=== PATIENT | female | born 1965 | race Caucasian/White ===

== ENCOUNTER → 2018-01-19 | Outpatient (CLI) | payer OTHER | LOC: RAD 14:46 | DX: Z12.31 Encounter for screening mammogram for malignant neoplasm of breast (principal) ==

== ENCOUNTER → 2019-02-03 | Outpatient (CLI) | payer OTHER | LOC: RAD 13:33 | DX: Z12.31 Encounter for screening mammogram for malignant neoplasm of breast (principal) ==

== ENCOUNTER → 2019-05-24 | Outpatient (CLI) | payer OTHER ==
[~2019-05-24] VITALS: Ht 157.5 cm; Wt 77.6 kg
[~2019-05-24] MED LIST: CYMBALTA60 MG PO; DIOVAN 80 MG TA80 M1 PO; FENOFIBRATE200 MG PO; HYDROCODON-ACE1 EAC7 PO; JARDIANCE10 MG PO; LEVEMIR SUBQ; METFORMIN HCL1000 MG PO; NOVOLOG100 UNIT/1 SUBQ; TRULICITY1.5 MG/0.5 SUBQ
--- NOTE | ~2019-05-24 | HPC ---
[facility] [place] [place] [address] PAIN MANAGEMENT CONSULTATION Name: BONILLAJOSE LUIS A Room #: REG SINA Martinez#: [id number] Admission: 05/24/19 Attend Phys: Daksha Stoner MD Discharge: Date of : 65 Report #: [id number] THIS REPORT FOR: //name// CC: Itz Stoner DATE OF SERVICE: 05/31/2019 CHIEF COMPLAINT: History of spinal stenosis and back pain. HISTORY OF PRESENT ILLNESS: The patient is a 54-year-old female who has been referred to the pain clinic for evaluation of back and leg pain. The patient states that she has a history of spinal stenosis. Has pain in the lower portion of her back that has been radiating down into her spine and into her neck as well as across the lower portion of her back. Pain is problematic in the right buttocks area. She also notes some pain and discomfort that radiates into her thigh to the level of the knee. Occasionally, has some discomfort on the left side as well. Notes that there is some tightness, which radiates down into the heel of her legs on the back side, right side more so than the left. Her MRI showed mild spinal stenosis at L3-L4. Also, moderate narrowing at L5-S1 in the area of the left L5 nerve root. The patient speaks Niuean. An full time staff interpreter was used to help facilitate our interaction. ALLERGIES: No known drug allergies. CURRENT MEDICATIONS: Jardiance 10 mg, tramadol 50 mg q.6 hours p.r.n., hydrocodone 5/325 q.6 hours p.r.n., NovoLog 7 units with meals, Cymbalta 60 mg b.i.d., valsartan 80 mg, Medrol Dosepak 01/19/2019, metformin 1000 mg b.i.d., Lyrica capsules 50 mg b.i.d., Trulicity 1.5 mg, Levemir 100 units as directed, ibuprofen 800 mg b.i.d., fenofibrate 200 mg. PAST MEDICAL HISTORY: Spinal stenosis, type 2 diabetes, hypertension, polyneuropathy, stage 3 chronic kidney disease, gallbladder disease. PAST SURGICAL HISTORY: Cholecystectomy in 2013, kidney drainage in 2013. SOCIAL HISTORY: Unemployed, has not worked for the last 6 years. REVIEW OF SYSTEMS: Recent weight change, wears glasses, shortness of breath with walking, dizziness, recurrent headaches, numbness and tingling sensation, diabetes, anemia. LABORATORY DATA: MRI of the lumbar spine dated 04/05/2019: 1. L2-L3 disk height disk bulge and prominent endplate degeneration. There is a disk cyst projecting superiorly on the right. There [place] [address] PAIN MANAGEMENT CONSULTATION Name: JOSE LUIS BONILLA Room #: REG CL Cecilio.#: [id number] Admission: 05/24/19 Attend Phys: Daksha Stoner MD Discharge: Date of : 65 Report #: [id number] spinal canal and mild right foraminal narrowing. 2. L3-L4 disk bulge with mild facet joint arthropathy with mild narrowing of the spinal canal. 3. L5 mild facet arthropathy, otherwise unremarkable. 4. L5-S1 left foraminal disk protrusion results in moderate narrowing of the left foramen. Impression, mild spinal stenosis at L3-L4, moderate left foraminal narrowing at L5-S1 that could affect the L5 nerve root. PAIN CLINIC ASSESSMENT AND PQRS: 1. Osteoarthritis, not being treated for osteoarthritis. 2. History of rheumatoid arthritis, not being treated for rheumatoid arthritis. 3. Height 5 feet 2 inches, weight 171 pounds, BMI is 31.3. 4. Vital signs: Blood pressure 139/82, pulse 95, respiratory rate 16, room air saturation is 100%. 5. Pain intensity, 10/10. 6. Fall risk. The patient has not fallen in the last 3 months. 7. Blood thinner. The patient is not on a blood thinning medication. 8. Hypertension. The patient is being treated for hypertension. 9. Opioids greater than 6 weeks. The patient has received some opioid medications from her primary physician. 10. Risk assessment tool, low for opioid use. 11. Functional assessment tool, 44/70. 12. Recreational drug use, the patient denies. 13. Tobacco: The patient has never smoked. 14. Alcohol: The patient denies frequent use of alcoholic beverages. PHYSICAL EXAMINATION: GENERAL: The patient is a well-developed, well-nourished female. Appears her stated age. She is alert and oriented x 3. Her affect is appropriate. Speech is fluent. HEENT: Normocephalic, atraumatic. Extraocular eye muscles intact. Sclerae nonicteric. Mucous membranes are moist. NECK: Without adenopathy or JVD. HEART: Regular rate. ABDOMEN: Nontender. Bowel sounds present. MUSCULOSKELETAL: Upper extremity muscle strength judged to be 5/5 for the major muscle groups in the upper extremity. The patient has pain and discomfort in lower portion of her back with pain that is radiating down the L5-S1 dermatomal distribution on the left with increased numbness and tingling down into her fingers. Bumps into her feet. The patient notes that with prolonged standing, she has pain and discomfort. Has difficulty walking through shopping centers because of worsening of pain and discomfort. IMPRESSION: [facility] [address] [place] [address] PAIN MANAGEMENT CONSULTATION Name: JOSE LUIS BONILLA Ozzie Room #: REG LUIAnders Martinez#: [id number] Admission: 05/24/19 Attend Phys: Daksha Stoner MD Discharge: Date of : 65 Report #: [id number] 1. Spinal stenosis, L5-S1 dermatomal distribution with MRI showing narrowing in the L2 with narrowing in the L3-L4 dermatomal distribution as well. 2. Type 2 diabetes. 3. Hypertension. 4. Polyneuropathy. 5. Stage 3 chronic kidney disease. 6. Gallbladder disease. RECOMMENDATIONS: We discussed treatment options with the patient. Risks and benefits of an epidural steroid injection were discussed. They include but are not limited to infection, worsening of pain, no improvement in pain, spinal headache, bleeding, paralysis and the patient elects to proceed. The patient was then taken to the procedure area. She was assisted in getting on the examination table. Her daughter stood at the door and relayed our information to her. Things went well. The patient's back was sterilely prepped with a Betadine solution. A pillow had been placed under the abdomen to bolster and improve positioning. Fluoroscopy using anterior, posterior approach were undertaken. The L5-S1 area was sterilely prepped. A 25-gauge needle was then advanced into the area of the L5-S1 area. This area was anesthetized with 0.25% bupivacaine. A 17-gauge Tuohy with loss of resistance technique using a left paramedian approach was undertaken. The patient tolerated the procedure well. There were no complications. A total of 80 mg Depo-Medrol, 40 mg triamcinolone and 2 mL of 0.25% bupivacaine was injected. The patient was also provided with hydrocodone 5/325 one p.o. t.i.d. for a total of 21 tablets. She will call us if she has any concerns. Hopefully, the patient continues to improve. By: [id number] Daksha Stoner MD /[facility]
[2019-05-24 13:49] VITALS: BP 139/82
--- NOTE | 2019-05-24 14:02 | NUR ---
Pain Clinic Assessment: 1. History of Osteoarthritis: NOT DIAGNOSED History of Rheumatoid Arthritis: NONE 2. Height: 5 ft. 2 in. 157.5 cm. Weight: 171.0 lb. oz. 77.565 kg. Patient's BMI: 31.3 3. Vital Signs: BP: 139/82 Pulse: 95 Resp: 16 Temp: 02 Sat: 100 ECG Mon: 4. Pain Intensity: 10 5. Fall Risk: Dizziness: Y Needs help standing or walking: N Fallen in the last 3 months: N Fall risk comments: 6. Patient on Blood Thinner: None 7. History of Hypertension: Y 8. Opioid Therapy greater than 6 weeks: Opiate Contract Signed: 9. Risk Assessment Tool Provided: 10. Functional Assessment Tool: 11. Recreational Drug Use: Never Drug Type: Tobacco Use: Never Smoker Tobacco Type: Amount or Packs/day: How Many Years: Alcohol Use: No Frequency: Quant:
== END | disposition home or self-care (01) ==
LOC: PAIN 07:02
DX: M48.061 Spinal stenosis, lumbar region without neurogenic claudication (principal); M54.16 Radiculopathy, lumbar region; G89.29 Other chronic pain; G62.9 Polyneuropathy, unspecified; I12.9 Hypertensive chronic kidney disease with stage 1 through stage 4 chronic kidney disease, or unspecified chronic kidney disease; E11.22 Type 2 diabetes mellitus with diabetic chronic kidney disease; N18.3 Chronic kidney disease, stage 3 (moderate); Z87.19 Personal history of other diseases of the digestive system; Z90.49 Acquired absence of other specified parts of digestive tract; Z98.890 Other specified postprocedural states; Z79.899 Other long term (current) drug therapy; Z79.891 Long term (current) use of opiate analgesic

== ENCOUNTER → 2019-06-21 | Outpatient (CLI) | payer OTHER ==
[~2019-06-21] VITALS: Ht 157.5 cm; Wt 76.1 kg
--- NOTE | ~2019-06-21 | HPC ---
[facility] [place] [place] [address] PAIN MANAGEMENT CONSULTATION Name: IRENEJOSE LUIS A Room #: REG SINA Juan#: [id number] Admission: 06/21/19 ������������������ Attend Phys: Daksha Stoner MD Discharge: ������������������ Date of : 65 Report #: [id number] THIS REPORT FOR: //name// CC: Itz Stoner DATE OF SERVICE: 06/21/2019 CHIEF COMPLAINT: Pain in the low back that goes down into the spine. Pain in the buttocks area on the right. Occasional pain on the left side as well as pain has been my knees. HISTORY: The patient is a 54-year-old female who has been referred to the Pain Clinic for evaluation. She underwent an epidural steroid injection at the last visit. She gleaned benefit from that. She is still having pain in the same area, but to a lesser degree. Had no complications from the procedure. She has returned to the Pain Clinic with a desire to undergo another epidural steroid injection to help decrease her pain. She rates the pain as a 7/10. She is able to do more activities with less discomfort. The patient has an MRI, which shows spinal stenosis at the L3-L4 area. Also, has some pain or has some narrowing at the L5-S1 area involving the left L5 nerve root. The patient is interviewed with her daughter. States that she understands with her daughter's interpretation. The patient desires an epidural steroid injection again today to build on the pain benefit she had received from the first. ALLERGIES: No known drug allergies. CURRENT MEDICATIONS: Jardiance 10 mg, tramadol 50 mg one p.o. q. 6 hours p.r.n. pain, hydrocodone 5/325 one p.o. q. 6 hours p.r.n., NovoLog 7 units with meals, Cymbalta 60 mg b.i.d., valsartan 80 mg, Medrol Dosepak in the past, metformin 1000 mg b.i.d., Lyrica capsules 50 mg b.i.d., Trulicity 1.5 mg, Levemir 100 units as directed, ibuprofen 800 mg b.i.d., and fenofibrate 200 mg. PAIN CLINIC ASSESSMENT/PQRS: 1. The patient is not being treated for osteoarthritis or rheumatoid arthritis. 2. Height 5 feet 2 inches, weight 167 pounds, BMI is 30. 3. Vital Signs: Blood pressure 118/74, pulse 84, respiratory rate 16, room air saturation is 100%. 4. Pain intensity, 7/10. 5. Fall history: The patient has not fallen since we saw her last. 6. Blood thinner. The patient is not on a blood thinning medication. 7. Hypertension. The patient is being treated for hypertension. 8. Opioids greater than 6 weeks. 9. Risk assessment tool, low for opioid use. 10. Functional assessment tool. 11. Recreational drug use. [place] [address] PAIN MANAGEMENT CONSULTATION Name: JOSE LUIS BONILLA Room #: REG [facility].#: [id number] Admission: 06/21/19 ������������������ Attend Phys: Daksha Stoner MD Discharge: ������������������ Date of : 65 Report #: [id number] 12. Alcohol. The patient denies use of alcoholic beverages. PHYSICAL EXAMINATION: GENERAL: The patient is a well-developed, well-nourished female. Appears her stated age. She is alert and oriented x 3. Her affect is appropriate. Speech is fluent. HEENT: Normocephalic, atraumatic. Extraocular eye muscles intact. Sclerae nonicteric. Mucous membranes are moist. NECK: Without adenopathy or JVD. HEART: Regular rate. ABDOMEN: Nontender. Bowel sounds present. MUSCULOSKELETAL: Muscle strength in the upper extremities, judged to be 5/5 for the major muscle groups in the upper extremity. The patient has pain and discomfort in lower portion of her back in the L5-S1 dermatomal distribution primarily on the left with some numbness and tingling. The patient notes increased pain and discomfort with prolonged standing. Somewhat increased discomfort with walking through shopping center. IMPRESSION: 1. Spinal stenosis, L5-S1 dermatomal distribution with MRI showing narrowing of the L2 level with narrowing in the L3-L4 dermatomal distribution as well. 2. Type 2 diabetes. 3. Hypertension. 4. Polyneuropathy. 5. Stage 3 chronic kidney disease. 6. Gallbladder disease. RECOMMENDATIONS: We discussed treatment options with the patient. Risks and benefits of an injection were discussed. Possible complications of the procedure, which could include but are not limited to infection, worsening pain, no improvement in pain, muscle soreness, nerve damage, bleeding, spinal headache and the patient elects to proceed. PROCEDURE NOTE: The patient was taken to the procedure area. She was then assisted in getting on the examination table. Her back was sterilely prepped with a Betadine solution. A pillow was placed under her abdomen to bolster and improve positioning. Fluoroscopy using anterior, posterior as well as lateral viewing were implemented. The patient's daughter stays outside the room with the door partially opened to relay information to the patient regarding what we were doing with the procedure and whether or not she was having any problems. This worked well. There were no complications. A total of 80 mg Depo-Medrol, 40 mg triamcinolone and 2 mL of 0.25% bupivacaine was infiltrated in a midline approach at the L5-S1 dermatomal area. The patient tolerated the procedure well. There were no complications. She remained in the Pain Clinic for an appropriate amount of time. She will follow up in the future as needed. [address] [address] [place] [address] PAIN MANAGEMENT CONSULTATION Name: JOSE LUIS BONILLA Room #: REG Anders Martinez#: [id number] Admission: 06/21/19 ������������������ Attend Phys: Daksha Stoner MD Discharge: ������������������ Date of : 65 Report #: [id number] We would like to thank you for letting us participate in her care. We hope she continues to improve. ��������������������������������������������� ���������������������������������������� By: ��������������������������������������������� [id number] Daksha Stoner MD /nt
[2019-06-21 13:51] VITALS: BP 118/74
--- NOTE | 2019-06-21 14:04 | NUR ---
Pain Clinic Assessment: 1. History of Osteoarthritis: NOT DIAGNOSED History of Rheumatoid Arthritis: NONE 2. Height: 5 ft. 2 in. 157.5 cm. Weight: 167.8 lb. oz. 76.114 kg. Patient's BMI: 30.7 3. Vital Signs: BP: 118/74 Pulse: 84 Resp: 16 Temp: 02 Sat: 100 ECG Mon: 4. Pain Intensity: 7 5. Fall Risk: Dizziness: Y Needs help standing or walking: N Fallen in the last 3 months: N Fall risk comments: 6. Patient on Blood Thinner: None 7. History of Hypertension: Y 8. Opioid Therapy greater than 6 weeks: Opiate Contract Signed: 9. Risk Assessment Tool Provided: 10. Functional Assessment Tool: 11. Recreational Drug Use: Never Drug Type: Tobacco Use: Never Smoker Tobacco Type: Amount or Packs/day: How Many Years: Alcohol Use: No Frequency: Quant:
== END | disposition home or self-care (01) ==
LOC: PAIN 06:55
DX: M48.061 Spinal stenosis, lumbar region without neurogenic claudication (principal); M54.16 Radiculopathy, lumbar region; G89.29 Other chronic pain; I12.9 Hypertensive chronic kidney disease with stage 1 through stage 4 chronic kidney disease, or unspecified chronic kidney disease; E11.22 Type 2 diabetes mellitus with diabetic chronic kidney disease; N18.3 Chronic kidney disease, stage 3 (moderate); Z87.19 Personal history of other diseases of the digestive system; G62.9 Polyneuropathy, unspecified; Z79.891 Long term (current) use of opiate analgesic; Z79.899 Other long term (current) drug therapy; Z98.890 Other specified postprocedural states

== ENCOUNTER → 2019-07-19 | Outpatient (CLI) | payer OTHER ==
[~2019-07-19] VITALS: Ht 157.5 cm; Wt 76.3 kg
[~2019-07-19] MED LIST changes: +MOBIC15 MG PO; +NEURONTIN 300300 M1 PO
[2019-07-19 10:57] VITALS: BP 131/63
--- NOTE | 2019-07-19 11:26 | NUR ---
Pain Clinic Assessment: 1. History of Osteoarthritis: NOT DIAGNOSED History of Rheumatoid Arthritis: NONE 2. Height: 5 ft. 2 in. 157.5 cm. Weight: 168.2 lb. oz. 76.295 kg. Patient's BMI: 30.8 3. Vital Signs: BP: 131/63 Pulse: 96 Resp: 16 Temp: 02 Sat: 100 ECG Mon: 4. Pain Intensity: 7-8 5. Fall Risk: Dizziness: Y Needs help standing or walking: N Fallen in the last 3 months: N Fall risk comments: 6. Patient on Blood Thinner: None 7. History of Hypertension: Y 8. Opioid Therapy greater than 6 weeks: N Opiate Contract Signed: 9. Risk Assessment Tool Provided: 10. Functional Assessment Tool: 11. Recreational Drug Use: Never Drug Type: Tobacco Use: Never Smoker Tobacco Type: Amount or Packs/day: How Many Years: Alcohol Use: No Frequency: Quant:
--- NOTE | 2019-07-28 08:26 | HPC ---
[facility] [address] [place] [address] PAIN MANAGEMENT CONSULTATION Name: JOSE LUIS BONILLA Ozzie Room #: REG LUIAnders Martinez#: [id number] Admission: 07/19/19 Attend Phys: Daksha Stoner MD Discharge: Date of : 65 Report #: [id number] THIS REPORT FOR: //name// CC: Itz Stoner DATE OF SERVICE: 07/19/2019 CHIEF COMPLAINT: "The pain has been helped by the injections, but I am still having pain and would like another injection." HISTORY: The patient is a 54-year-old female. Persian is her primary language. She is accompanied by her daughter. The patient states that she did undergo an epidural steroid injection. The first one was quite beneficial. The patient did note some improvement in the last, but not as to the same significance that she noticed on the first one. She would like to proceed with another injection at this point. She continues to have pain that radiates down into her low back area. This goes down into the area of the left low back area near the sciatic nerve. She has also noted some pain in her neck. Has some pain and discomfort in both hands. She feels that this might be irritation of the nerves in her neck. She would like to proceed with an epidural injection today. ALLERGIES: No known drug allergies. CURRENT MEDICATIONS: Jardiance 10 mg, tramadol 50 mg q.6 hours p.r.n., hydrocodone 5/325 q.6 hours p.r.n., NovoLog 7 units with meal, Cymbalta 60 mg b.i.d., valsartan 80 mg, Medrol Dosepak has been used in the past, metformin 1000 mg b.i.d., Lyrica capsules 50 mg b.i.d., Trulicity 1.5 mg, Levemir 100 units as directed, ibuprofen 800 mg b.i.d., fenofibrate 200 mg. PAIN CLINIC ASSESSMENT AND PQRS: 1. The patient is not being treated for osteoarthritis or rheumatoid arthritis. 2. Height 5 feet 2 inches, weight 168 pounds, BMI is 30. 3. Vital signs: Blood pressure 131/63, pulse 96, respiratory rate 16, room air saturations 100%. 4. Pain intensity, 7-8/10. 5. Fall history, the patient has not fallen in the last 3 months. 6. Blood thinner, the patient is not on a blood thinning medication. 7. Hypertension, the patient is being treated for hypertension. 8. Opioids greater than 6 weeks. The patient is not on a regular opioid regimen. 9. Risk assessment tool, low for opioid use. 10. Functional assessment tool. 11. Recreational drug use, the patient denies. 12. Tobacco, the patient has never smoked. [address] [address] PAIN MANAGEMENT CONSULTATION Name: JOSE LUIS BONILLA Room #: REG [facility]#: [id number] Admission: 07/19/19 Attend Phys: Daksha Stoner MD Discharge: Date of : 65 Report #: [id number] 13. Alcohol, the patient denies frequent use of alcoholic beverages. PHYSICAL EXAMINATION: GENERAL: The patient is a well-developed, well-nourished, female. She is alert and oriented x 3. Her affect is appropriate. Speech is fluent. She converses with me through her daughter. HEENT: Normocephalic, atraumatic. Extraocular eye muscles intact. Sclerae nonicteric. Mucous membranes are moist. NECK: Without adenopathy or JVD. HEART: Regular rate. ABDOMEN: Nontender. Bowel sounds present. MUSCULOSKELETAL: Strength in the upper extremities judged to be 5-/5 for the major muscle groups in the upper extremity. The patient does complain of some pain and discomfort in the neck area with some down into her arms. The patient has pain in the lower portion of her back in the L5-S1 dermatomal distribution. She also has some discomfort and worsening of pain with prolonged standing. Walking through shopping center is problematic. IMPRESSION: 1. Spinal stenosis, L5-S1 dermatomal distribution with MRI showing narrowing of the L2 level and L3-L4 level. 2. Type 2 diabetes. 3. Hypertension. 4. Polyneuropathy. 5. Stage 3 chronic kidney disease. 6. Gallbladder disease. RECOMMENDATIONS: We discussed treatment options with the patient. Risks and benefits of the procedure were again reviewed with the patient and her daughter. Possible complications of the procedure, which could include infection, increased muscle soreness, bleeding, nerve damage, paralysis, spinal headache were reviewed and the patient elects to proceed. PROCEDURE NOTE: The patient was taken to the procedure area. She was then assisted in getting on the examination table. Her back was sterilely prepped with a Betadine solution. A 0.25% bupivacaine was infiltrated. A 17-gauge Tuohy with loss of resistance technique at the L5-S1 area was used. A midline injection with a 25-gauge needle to numb the area was provided. Aspiration at the L5-S1 area with a 17-gauge Tuohy was negative. A total of 80 mg Depo-Medrol, 40 mg triamcinolone and 2 mL of 0.25% bupivacaine was injected. The patient tolerated the procedure well. Her daughter stood at the door and relayed our description of what was taking place with the patient. They both appear to handle this treatment well. We would like to thank you for letting us participate in her care. We hope she [facility] [address] [place] [address] PAIN MANAGEMENT CONSULTATION Name: JOSE LUIS BONILLA Room #: [facility].#: [id number] Admission: 07/19/19 Attend Phys: Daksha Stoner MD Discharge: Date of : 65 Report #: [id number] continues to improve. The patient has been given a script for hydrocodone 5/325 1 p.o. b.i.d. to take in the interim. <ELECTRONICALLY SIGNED> By: Daksha Stoner MD 07/28/19 0826 [id number] Daksha Stoner MD /[facility]
== END | disposition home or self-care (01) ==
LOC: PAIN 07:12
DX: M48.061 Spinal stenosis, lumbar region without neurogenic claudication (principal); M54.16 Radiculopathy, lumbar region; E11.42 Type 2 diabetes mellitus with diabetic polyneuropathy; E11.22 Type 2 diabetes mellitus with diabetic chronic kidney disease; I12.9 Hypertensive chronic kidney disease with stage 1 through stage 4 chronic kidney disease, or unspecified chronic kidney disease; N18.9 Chronic kidney disease, unspecified; Z79.899 Other long term (current) drug therapy; Z79.84 Long term (current) use of oral hypoglycemic drugs

== ENCOUNTER → 2019-08-23 | Outpatient (CLI) | payer OTHER ==
[~2019-08-23] VITALS: Ht 157.5 cm; Wt 75.8 kg
[2019-08-23 14:20] VITALS: BP 121/73
--- NOTE | 2019-08-23 14:26 | NUR ---
Pain Clinic Assessment: 1. History of Osteoarthritis: Not Applicable History of Rheumatoid Arthritis: NONE 2. Height: 5 ft. 2 in. 157.5 cm. Weight: 167.0 lb. oz. 75.751 kg. Patient's BMI: 30.5 3. Vital Signs: BP: 121/73 Pulse: 108 Resp: 16 Temp: 02 Sat: 98 ECG Mon: 4. Pain Intensity: 8 5. Fall Risk: Dizziness: N Needs help standing or walking: N Fallen in the last 3 months: N Fall risk comments: 6. Patient on Blood Thinner: None 7. History of Hypertension: Y 8. Opioid Therapy greater than 6 weeks: N Opiate Contract Signed: 9. Risk Assessment Tool Provided: low-0 10. Functional Assessment Tool: / 11. Recreational Drug Use: Never Drug Type: Tobacco Use: Never Smoker Tobacco Type: Amount or Packs/day: How Many Years: Alcohol Use: No Frequency: Quant:
--- NOTE | 2019-08-31 11:13 | HPC ---
[facility] [place] [address] [place] [address] PAIN MANAGEMENT CONSULTATION Name: JOSE LUIS BONILLA Ozzie Room #: REG SINA Juan#: [id number] Admission: 08/23/19 Attend Phys: Daksha Stoner MD Discharge: Date of : 65 Report #: [id number] THIS REPORT FOR: //name// CC: Itz Stoner DATE OF SERVICE: 08/23/2019 CHIEF COMPLAINT: Still having some low back pain up and down the spine and neck. HISTORY: The patient is a 54-year-old female. She is accompanied by her daughter. The patient has undergone epidural steroid injections. She has gleaned benefits from these, but her pain continues to be continuous. She has had pain problems since about 2016. She is having pain that continues to radiate down into her legs. She feels that her pain is about 50% helped with the injections, but still remains somewhat problematic. She would like to be advised on possible options. The patient is helped by hydrocodone. Pain in the low back area is her biggest concern at this juncture and that in the neck area is secondary at this juncture. ALLERGIES: No known drug allergies. CURRENT MEDICATIONS: Jardiance 10 mg, tramadol 50 mg q. 6 hours p.r.n., hydrocodone 5/325 q. 6 hours p.r.n., NovoLog 7 units with meals, Cymbalta 60 mg b.i.d., valsartan 80 mg, Medrol Dosepak has been used in the past, metformin 100 mg b.i.d., Lyrica capsules 50 mg b.i.d., Trulicity 1 mg, Levemir 100 units as directed, ibuprofen 800 mg, and fenofibrate 200 mg. PAIN CLINIC ASSESSMENT/PQRS: 1. The patient is not being treated for osteoarthritis or rheumatoid arthritis. 2. Height 5 feet 2 inches, weight 167 pounds, BMI is 30. 3. Vital signs: Blood pressure 121/73, pulse is 108, respiratory rate 16, and room air saturation 98%. 4. Pain intensity, 05/27. 5. Fall history: The patient has not fallen in the last 3 months. 6. Blood thinner. The patient is not on a blood thinning medication. 7. Hypertension. The patient is being treated for hypertension. 8. Opioids greater than 6 weeks. 9. Risk assessment tool, low for opioid use. 10. Functional assessment tool, 44/70. 11. Recreational drug use: The patient denies. 12. Tobacco: The patient has never smoked. 13. Alcohol. The patient denies use of alcoholic beverages. PHYSICAL EXAMINATION: [facility] [address] [place] [address] PAIN MANAGEMENT CONSULTATION Name: BONILLAJOSE LUIS Room #: REG SINA Martinez#: [id number] Admission: 08/23/19 Attend Phys: Daksha Stoner MD Discharge: Date of : 65 Report #: [id number] GENERAL: The patient is a well-developed, well-nourished female. She is accompanied by her daughter. Her affect is appropriate. HEENT: Normocephalic, atraumatic. Extraocular eye muscles intact. Sclerae nonicteric. Mucous membranes are moist. NECK: Without adenopathy or JVD. HEART: Regular rate. ABDOMEN: Nontender. Bowel sounds present. MUSCULOSKELETAL: Upper extremity muscle strength is judged to be 5-/5 for the major muscle groups in the upper extremity. Complains of some pain in her neck and some pain down in her arm on occasion. The patient has pain in the lower portion of her back in the L5-S1 dermatomal distribution. Also, has worsening of her pain with prolonged standing, walking and shopping. IMPRESSION: 1. Spinal stenosis. L5-S1 dermatomal distribution with an MRI showing narrowing of the L2 level through L3 and L4. 2. Type 2 diabetes. 3. Hypertension. 4. Polyneuropathy. 5. Stage 3 chronic kidney disease. 6. Gallbladder disease. RECOMMENDATIONS: We discussed treatment options with the patient. Risks and benefits of nonsteroidal anti-inflammatory medications were discussed. We will try briefly use of Mobic 15 mg 1 daily. The patient will not take the ibuprofen. She has been using. We will also continue with hydrocodone 5 mg 1 p.o. b.i.d. The patient will try gabapentin 300 mg 1 p.o. t.i.d. and titrate it as needed. Hopefully, the patient will find the use of gabapentin helpful. We will consider physical therapy. We would like to thank you for letting us participate in her care. We hope she continues to improve. <ELECTRONICALLY SIGNED> By: Daksha Stoner MD 08/31/19 1113 [id number] Daksha Stoner MD /nt
== END ==
LOC: PAIN 07:04
DX: M48.07 Spinal stenosis, lumbosacral region (principal); E11.42 Type 2 diabetes mellitus with diabetic polyneuropathy; E11.22 Type 2 diabetes mellitus with diabetic chronic kidney disease; I12.9 Hypertensive chronic kidney disease with stage 1 through stage 4 chronic kidney disease, or unspecified chronic kidney disease; N18.3 Chronic kidney disease, stage 3 (moderate); K82.9 Disease of gallbladder, unspecified; Z79.899 Other long term (current) drug therapy; Z79.891 Long term (current) use of opiate analgesic

== ENCOUNTER → 2019-09-27 | Outpatient (CLI) | payer OTHER ==
[~2019-09-27] VITALS: Ht 157.5 cm; Wt 78.1 kg
[~2019-09-27] MED LIST changes: +NEURONTIN300 MG PO
[2019-09-27 12:59] VITALS: BP 148/72
--- NOTE | 2019-09-27 13:10 | NUR ---
Pain Clinic Assessment: 1. History of Osteoarthritis: Not Applicable History of Rheumatoid Arthritis: NONE 2. Height: 5 ft. 2 in. 157.5 cm. Weight: 172.2 lb. oz. 78.109 kg. Patient's BMI: 31.5 3. Vital Signs: BP: 148/72 Pulse: 85 Resp: 16 Temp: 02 Sat: 100 ECG Mon: 4. Pain Intensity: 7-TOOK PAIN MED 5. Fall Risk: Dizziness: Y Needs help standing or walking: N Fallen in the last 3 months: N Fall risk comments: 6. Patient on Blood Thinner: None 7. History of Hypertension: Y 8. Opioid Therapy greater than 6 weeks: N Opiate Contract Signed: 9. Risk Assessment Tool Provided: low-0 10. Functional Assessment Tool: 11. Recreational Drug Use: Never Drug Type: Tobacco Use: Never Smoker Tobacco Type: Amount or Packs/day: How Many Years: Alcohol Use: No Frequency: Quant:
--- NOTE | 2019-09-28 08:39 | HPC ---
[facility] [address] [place] [address] PAIN MANAGEMENT CONSULTATION Name: JOSE LUIS BONILLA Ozzie Room #: REG [facility] Juan#: [id number] Admission: 09/27/19 Attend Phys: Cyndi Pimentel Discharge: Date of : 65 Report #: [id number] THIS REPORT FOR: //name// CC: Cyndi Stoner MD DATE OF SERVICE: 09/27/2019 CHIEF COMPLAINT: Low back pain and left leg pain, lumbar radiculopathy. HISTORY OF PRESENT ILLNESS: This is a 54-year-old female here present with her daughter today for followup with some new medications that we recently started after her epidural steroid injections were not as helpful as we hoped. They did help at least 50%, but she still continues to have pain, rating it as 7/10 in her lower back that radiates down her left leg. It is a constant, aching weakness, numbness, tingling and she describes it worse with standing or any physical work and walking. She feels that lying down and sitting are beneficial as well as her medications. She reports that we started her on meloxicam and gabapentin. At her last visit, she feels that her neck and arm pain have improved and is not complaining of those today, just continues to have low back and left leg pain. She feels that the hydrocodone is also beneficial in controlling her pain. Today, she would like to discuss options regarding her medications. ALLERGIES: No known drug allergies. CURRENT LIST OF MEDICATIONS: Hydrocodone 5/325 b.i.d. p.r.n., meloxicam 15 mg daily, gabapentin 300 mg t.i.d., metformin 1000 mg b.i.d., duloxetine 60 mg b.i.d., fenofibrate 200 mg daily, NovoLog sliding scale, Jardiance 10 mg daily, Diovan 80 mg daily, Levemir 22 units b.i.d. and Trulicity. PQRS: 1. She is not being treated for osteoarthritis or rheumatoid arthritis. 2. Height is 5 feet 2 inches, weight is 172, BMI is 31. 3. Vital signs 148/72, pulse is 85, respirations 16, oxygen sat is 100%. 4. Pain score 7/10. 5. Complains of slight dizziness, does not need help walking or standing, has not fallen in the last 3 months. 6. The patient is not on any blood thinners, but does take medicine for hypertension. 7. Opioid therapy is greater than [address] an opioid contract in her chart for her to sign at her next visit. 8. Risk assessment tool is low. Functional assessment is 44/70. 9. Recreational drug use, she denies. She is not a smoker and does not drink alcohol. [address] [address] PAIN MANAGEMENT CONSULTATION Name: JOSE LUIS BONILLA Ozzie [id number] Admission: 09/27/19 Attend Phys: Cyndi Pimentel Discharge: Date of : 65 Report #: [id number] According to the prescription monitoring system, the patient is filling appropriately for her medications. PHYSICAL EXAMINATION: GENERAL: This is alert and orientated, well-developed female, appears slightly older than her stated age, placing her current pain score at 7/10 today. HEENT: Normocephalic, atraumatic. Extraocular eye muscles are intact. Mucous membranes are moist. NECK: Without adenopathy or JVD. MUSCULOSKELETAL: She has tenderness in her lower portion of her back following the L5-S1 dermatomal distribution that does radiate down her left leg to her calf in the posterior aspect of her leg. Her upper extremity strength judged to be 5/5 for all major muscle groups. The patient has a slightly antalgic gait, complains of slight weakness in her left extremity. IMPRESSION: 1. Spinal stenosis at the L5-S1 dermatomal distribution. 2. Lumbar radiculopathy. 3. Type 2 diabetic. 4. Hypertension. 5. Polyneuropathy. 6. Stage 3 chronic kidney disease. We reviewed the fact that opiate medications are being used to provide analgesia adequate to support activities of daily living, not attempting to achieve a specific pain score on the 0-10 Visual Analog Scale. The current opiate medications are providing sufficient analgesia to allow the patient to participate in activities of daily living. The patient is not exhibiting any aberrant behavior suggestive of drug diversion. The patient is not having any adverse reactions to medications. The patient is not suffering from daytime somnolence or mental acuity changes. The patient is managing opiate-induced constipation with appropriate [id number] agents and dietary considerations. The patient was counseled on concern for caution with operating a motor vehicle while using opiate medications. PLAN: 1. We discussed treatment options with the patient today. The patient feels like she is not having any side effects from her medications whether over sedation or constipation. She feels that her medicines are helpful, but continues to have numbness and tingling in her left leg. We discussed increasing her gabapentin slowly adding one pill every 3-5 days to our goal dose of 600 mg 3 times a day. I did explain this to the daughter who is present today. The patient will start taking 1 in the morning, 1 midday, 2 at night, then increase to 2 in the morning, 1 midday, 2 at night with a goal of 2 tablets [facility] [address] [place] [address] PAIN MANAGEMENT CONSULTATION Name: BONILLAJOSE LUIS A Room #: REG [facility]#: [id number] Admission: 09/27/19 Attend Phys: Cyndi Pimentel Discharge: Date of : 65 Report #: [id number] 3 times a day. These are 300 mg tablets were given for quantity 180. The patient was instructed to stop at that dose that is effective in decreasing her pain. 2. Scripts given for meloxicam 15 mg once a day, #30. They do report that it is not upsetting her stomach in anyway. We did talk about risks and benefits. Scripts given today for this medication. 3. We will continue her hydrocodone 5/325 twice a day. Scripts given. The patient does take occasional tramadol as well. I encouraged the patient not to take these at the same time. 4. We will follow the patient in 1 month to discuss medication options again at this time. She did feel that the epidurals were beneficial for short duration and unfortunately she is not able to have another injection until at least November. 5. The patient is seen in collaboration today with Dr. Rj Stoner. <ELECTRONICALLY SIGNED> By: Cyndi Pimentel 09/28/19 0839 [id number] Cyndi Pimentel /tamica
== END ==
LOC: PAIN 06:57
DX: M48.061 Spinal stenosis, lumbar region without neurogenic claudication (principal); M54.16 Radiculopathy, lumbar region; E11.9 Type 2 diabetes mellitus without complications; G62.9 Polyneuropathy, unspecified; I12.9 Hypertensive chronic kidney disease with stage 1 through stage 4 chronic kidney disease, or unspecified chronic kidney disease; N18.3 Chronic kidney disease, stage 3 (moderate)

== ENCOUNTER → 2019-10-27 | Outpatient (CLI) | payer OTHER ==
[~2019-10-27] VITALS: Ht 157.5 cm; Wt 79.7 kg
[~2019-10-27] MED LIST changes: +LYRICA 75 MG CA75 MG PO
[2019-10-27 10:31] VITALS: BP 153/75
--- NOTE | 2019-10-27 10:49 | NUR ---
Pain Clinic Assessment: 1. History of Osteoarthritis: Not Applicable History of Rheumatoid Arthritis: NONE 2. Height: 5 ft. 2 in. 157.5 cm. Weight: 175.6 lb. oz. 79.652 kg. Patient's BMI: 32.1 3. Vital Signs: BP: 153/75 Pulse: 91 Resp: 16 Temp: 02 Sat: 100 ECG Mon: 4. Pain Intensity: 7 5. Fall Risk: Dizziness: Y Needs help standing or walking: N Fallen in the last 3 months: N Fall risk comments: 6. Patient on Blood Thinner: None 7. History of Hypertension: Y 8. Opioid Therapy greater than 6 weeks: N Opiate Contract Signed: 9. Risk Assessment Tool Provided: low-0 10. Functional Assessment Tool: 44/ 11. Recreational Drug Use: Never Drug Type: Tobacco Use: Never Smoker Tobacco Type: Amount or Packs/day: How Many Years: Alcohol Use: No Frequency: Quant:
--- NOTE | 2019-11-08 16:47 | HPC ---
[facility] [place] [address] [place] [address] PAIN MANAGEMENT CONSULTATION Name: BONILLAJOSE LUIS Ozzie Room #: REG SINA Juan#: [id number] Admission: 10/27/19 Attend Phys: Daksha Stoner MD Discharge: Date of : 65 Report #: [id number] THIS REPORT FOR: //name// CC: Itz Stoner DATE OF SERVICE: 10/27/2019 CHIEF COMPLAINT: Lower back pain that is wrapping around the left leg and down into the foot. HISTORY: The patient is a 54-year-old female who has been seen in the Pain Clinic because of lumbar radiculopathy. She has undergone epidural steroid injections and found them to be helpful. At this juncture, she has continued to have some pain and discomfort. We have discussed the limitations of epidural steroid injections. At this juncture, she would not be eligible to undergo another epidural steroid injection for a few months. At this point, her pain continues to be problematic. She rates it as a 7/10. It involves her lower back with radiation down into her foot with numbness and tingling. She has tried gabapentin. She is not sure that she has noticed a significant improvement in her pain with that medication. She has tried [id number] medications like BenGay, but her pain persists. She describes it as continuous, constant weakness with aching, numbness and tingling in the low back area. She describes it as more problematic when she is standing as well as when she engages in activities of daily living such as physical work. Pain improves with medications as well as with sitting. ALLERGIES: No known drug allergies. CURRENT MEDICATIONS: Jardiance 10 mg, tramadol 50 mg every 4-6 hours, hydrocodone 5/325, NovoLog 7 units with meals as directed, Cymbalta 60 mg b.i.d., valsartan 80 mg, metformin 100 mg b.i.d., Lyrica 50 mg b.i.d., Trulicity 1 mg, Levemir 100 units as directed, ibuprofen 800 mg, fenofibrate 200 mg. PAIN CLINIC ASSESSMENT AND PQRS: 1. The patient is not being treated for osteoarthritis or rheumatoid arthritis. 2. Height 5 feet 2 inches, weight 175 pounds, BMI is 32.1. 3. Vital signs: Blood pressure 153/75, pulse 91, respiratory rate 16, room air saturation 100%. 4. Pain intensity is 7/10. 5. Fall risk: The patient has not fallen in the last 3 months. 6. Blood thinner: The patient is not on a blood thinning medication. 7. Hypertension: The patient is being treated for hypertension. 8. Opioids greater than 6 weeks: The patient is low for opioid use. 9. Functional assessment tool: 44/70 10. Recreational drug use: [place] [address] PAIN MANAGEMENT CONSULTATION Name: JOSE LUIS BONILLA Room #: REG [facility]#: [id number] Admission: 10/27/19 Attend Phys: Daksha Stoner MD Discharge: Date of : 65 Report #: [id number] 11. Tobacco: The patient denies tobacco. 12. Alcohol: The patient denies frequent use of alcoholic beverages. PHYSICAL EXAMINATION: GENERAL: The patient is a well-developed, well-nourished, female. She is accompanied by her daughter who speaks Qatari fluently. Extraocular eye muscles are intact. Sclerae nonicteric. NECK: Without adenopathy or JVD. HEART: Regular rate. ABDOMEN: Nontender. Bowel sounds present. MUSCULOSKELETAL: Without significant scoliosis, kyphosis or lordosis. The patient has pain in the lower portion of her back with pain that is radiating down into the L5-S1 dermatomal distribution with numbness and tingling down into her feet. IMPRESSION: 1. History of spinal stenosis with pain in the L5-S1 dermatomal distribution with MRI showing narrowing of the L2 level through L3 and L4. 2. Type 2 diabetes. 3. Hypertension. 4. Polyneuropathy. 5. Stage 3 chronic kidney disease. 6. Gallbladder disease. RECOMMENDATIONS: We discussed treatment options with the patient. At this juncture, she is unable to undergo an epidural steroid injection until November. [place] the [place] She would like to continue with her medications. A script for meloxicam 15 mg 1 p.o. daily has been written. We will continue to watch the patient's kidney function. She will continue with hydrocodone 5/325 one p.o. b.i.d. The patient will also try Lyrica 75 mg 1 p.o. b.i.d. Hopefully, she will find that this medication is more beneficial and provide her with more pain relief for the pain and the neuropathic discomfort that she is experiencing. We would like to thank you for letting us participate in her care. The patient is aware that opioid medications long-term for some people can be problematic. She is aware that some people have had problems with opioid medications and have overdosed. She keeps her medications in a guarded area. <ELECTRONICALLY SIGNED> By: Daksha Stoner MD 11/08/19 1647 [id number] Daksha Stoner MD /tamica
== END ==
LOC: PAIN 10-20 13:34
DX: M48.07 Spinal stenosis, lumbosacral region (principal); E11.22 Type 2 diabetes mellitus with diabetic chronic kidney disease; I12.9 Hypertensive chronic kidney disease with stage 1 through stage 4 chronic kidney disease, or unspecified chronic kidney disease; N18.3 Chronic kidney disease, stage 3 (moderate); E11.42 Type 2 diabetes mellitus with diabetic polyneuropathy; K82.9 Disease of gallbladder, unspecified; Z79.891 Long term (current) use of opiate analgesic; Z79.899 Other long term (current) drug therapy

== ENCOUNTER → 2019-11-22 | Outpatient (CLI) | payer OTHER ==
[~2019-11-22] VITALS: Ht 157.5 cm; Wt 77.7 kg
[2019-11-22 10:21] VITALS: BP 131/71
--- NOTE | 2019-11-22 10:26 | NUR ---
Pain Clinic Assessment: 1. History of Osteoarthritis: Not Applicable History of Rheumatoid Arthritis: NONE 2. Height: 5 ft. 2 in. 157.5 cm. Weight: 171.2 lb. oz. 77.656 kg. Patient's BMI: 33.4 3. Vital Signs: BP: 131/71 Pulse: 92 Resp: 16 Temp: 02 Sat: 98 ECG Mon: 4. Pain Intensity: 7 5. Fall Risk: Dizziness: N Needs help standing or walking: N Fallen in the last 3 months: N Fall risk comments: 6. Patient on Blood Thinner: None 7. History of Hypertension: Y 8. Opioid Therapy greater than 6 weeks: N Opiate Contract Signed: 9. Risk Assessment Tool Provided: low-0 10. Functional Assessment Tool: 11. Recreational Drug Use: Never Drug Type: Tobacco Use: Never Smoker Tobacco Type: Amount or Packs/day: How Many Years: Alcohol Use: No Frequency: Quant:
== END | disposition home or self-care (01) ==
LOC: PAIN 06:47
DX: M54.16 Radiculopathy, lumbar region (principal); G89.29 Other chronic pain; Z98.890 Other specified postprocedural states; Z79.891 Long term (current) use of opiate analgesic; Z79.899 Other long term (current) drug therapy

== ENCOUNTER → 2020-02-16 | Outpatient (CLI) | payer OTHER ==
[~2020-02-16] VITALS: Ht 157.5 cm; Wt 77.7 kg
[~2020-02-16] MED LIST changes: +AMITRIPTYLINE H10 M3 PO
[2020-02-16 09:58] VITALS: BP 129/69
--- NOTE | 2020-02-16 10:16 | NUR ---
Pain Clinic Assessment: 1. History of Osteoarthritis: NONE KNOWN History of Rheumatoid Arthritis: NONE 2. Height: 5 ft. 2 in. 157.5 cm. Weight: 171.2 lb. oz. 77.656 kg. Patient's BMI: 31.3 3. Vital Signs: BP: 129/69 Pulse: 92 Resp: 14 Temp: 02 Sat: 100 ECG Mon: 4. Pain Intensity: 10 5. Fall Risk: Dizziness: Y Needs help standing or walking: N Fallen in the last 3 months: N Fall risk comments: 6. Patient on Blood Thinner: None 7. History of Hypertension: Y 8. Opioid Therapy greater than 6 weeks: N Opiate Contract Signed: 9. Risk Assessment Tool Provided: low-0 10. Functional Assessment Tool: 11. Recreational Drug Use: Never Drug Type: Tobacco Use: Never Smoker Tobacco Type: Amount or Packs/day: How Many Years: Alcohol Use: No Frequency: Quant:
--- NOTE | 2020-02-28 14:06 | HPC ---
[facility] [place] [address] PAIN MANAGEMENT CONSULTATION Name: JOSE LUIS BONILLA Room #: REG SINA [facility]#: [id number] Admission: 02/16/20 Attend Phys: Daksha Stoner MD Discharge: Date of : 65 Report #: [id number] THIS REPORT FOR: cc: Itz Mayen MD, Kirk D. MD Brown, N. Wayne MD ~ CC: Itz Stoner DATE OF SERVICE: 02/16/2020 CHIEF COMPLAINT: Pain going down the back of the leg with numbness and tingling to the foot on the left side. HISTORY: The patient is a 55-year-old female who has been seen in the pain clinic because of lumbar radiculopathy. She has undergone epidural steroid injections in the past. She has been having pain and discomfort since 03/2016. She describes continuous weakness, aching, numbness and tingling. She rates the pain today as a 10/10. Standing is extremely problematic. Physical work and walking exacerbates her discomfort. Lying down helps with her pain. Use of medications as well as sitting can be beneficial. The patient would like to consider an epidural steroid injection. ALLERGIES: No known drug allergies. CURRENT MEDICATIONS: Jardiance 10 mg, tramadol 50 mg every 4-6 hours p.r.n., hydrocodone 5/325 one p.o. every 4-6 hours p.r.n., NovoLog 7 units with meals and then as directed, Cymbalta 60 mg b.i.d., valsartan 80 mg, metformin 100 mg b.i.d., Lyrica 50 mg b.i.d., Trulicity, Levemir 100 units as directed, ibuprofen 800 mg, and fenofibrate 200 mg. PAIN CLINIC ASSESSMENT AND PQRS: 1. The patient is not being treated for rheumatoid arthritis. She has some osteoarthritic changes in her back with spinal stenosis. 2. Height 5 feet 2 inches, weight 171 pounds, BMI is 31.3. 3. Vital Signs: Blood pressure 129/69, pulse 92, respiratory rate 14, room air saturation 100%. 4. Pain intensity is 10/10. 5. Fall risk. The patient has not fallen since we saw her last. 6. Blood thinner. The patient is not on a blood thinning medication. 7. Hypertension. The patient is being treated for hypertension. 8. Opioids greater than 6 weeks. The patient receives pain medication from the pain clinic. 9. Functional assessment tool, 44/70. 10. Recreational drug use. The patient denies. 11. Tobacco: [place] [address] PAIN MANAGEMENT CONSULTATION Name: JOSE LUIS BONILLA Room #: REG [facility] Martinez#: [id number] Admission: 02/16/20 Attend Phys: Daksha Stoner MD Discharge: Date of : 65 Report #: [id number] 12. Alcohol. The patient denies frequent use of alcoholic beverages. PHYSICAL EXAMINATION: GENERAL: The patient is a well-developed, well-nourished female. She is accompanied by her son. Her daughter who generally brings her is on the iPhone speaker and helps provide history as well as her son provides history as well. HEENT: Normocephalic, atraumatic. Extraocular eye muscles intact. Sclerae nonicteric. NECK: Without adenopathy or JVD. HEART: Regular rate. ABDOMEN: Nontender. Bowel sounds present. MUSCULOSKELETAL: Without significant scoliosis, kyphosis or lordosis. The patient complained continues to have pain and discomfort radiating down the lower portion of her back in the L5-S1 dermatomal distribution involving the left side. Has some tingling in her feet. IMPRESSION: 1. History of spinal stenosis in the L5-S1 dermatomal distribution with MRI showing narrowing at L2 through L3, and L4. 2. Type 2 diabetes. 3. Hypertension. 4. Polyneuropathy. 5. Stage 3 chronic renal disease. 6. Gallbladder disease. RECOMMENDATIONS: We discussed treatment options with the patient and her children. The patient would like to consider an epidural injection. We explained the risks and benefits of the procedure. The patient has undergone epidural steroid injections and gleaned benefits from these. We explained that the use of steroids can decrease one's immunity. With the COVID-19 virus prevalent because of the pandemic, we explained that should she contact the COVID infection she would mount a less vigorous resistance. She has some other comorbidities that might make an injection more problematic should she become effective with COVID-19. She has diabetes. Has some problems with renal disease, hypertension. For all of these reasons, I think to try ____ today. Her son and her daughter agree. The patient has been given a script for Lyrica 75 mg 1 p.o. b.i.d. She will also continue with hydrocodone 5/325 one p.o. every 4-6 hours p.r.n. pain. The patient will use amitriptyline 10 mg at bedtime. She will also continue with meloxicam 15 mg 1 p.o. daily. The patient will call us if she has any concerns. The possibility of an epidural steroid injection in the future remains an option. [address] [address] PAIN MANAGEMENT CONSULTATION Name: JOSE LUIS BONILLA Room #: [facility].#: [id number] Admission: 02/16/20 Attend Phys: Daksha Stoner MD Discharge: Date of : 65 Report #: [id number] We would like to thank you for letting us participate in her care. We hope she continues to improve. <ELECTRONICALLY SIGNED> By: Daksha Stoner MD 02/28/20 1406 [id number] Daksha Stoner MD /[facility]
== END ==
LOC: PAIN 02-15 08:29
DX: M54.5 Low back pain (principal); R20.2 Paresthesia of skin; E11.22 Type 2 diabetes mellitus with diabetic chronic kidney disease; I12.9 Hypertensive chronic kidney disease with stage 1 through stage 4 chronic kidney disease, or unspecified chronic kidney disease; G62.9 Polyneuropathy, unspecified; K82.9 Disease of gallbladder, unspecified; N18.3 Chronic kidney disease, stage 3 (moderate); Z87.39 Personal history of other diseases of the musculoskeletal system and connective tissue; Z79.899 Other long term (current) drug therapy

== ENCOUNTER → 2020-04-24 | Outpatient (CLI) | payer OTHER ==
[~2020-04-24] VITALS: Ht 157.5 cm; Wt 81.4 kg
[2020-04-24 14:15] VITALS: BP 134/70
--- NOTE | 2020-04-24 14:40 | NUR ---
Pain Clinic Assessment: 1. History of Osteoarthritis: NONE KNOWN History of Rheumatoid Arthritis: NONE 2. Height: 5 ft. 2 in. 157.5 cm. Weight: 179.4 lb. oz. 81.375 kg. Patient's BMI: 32.8 3. Vital Signs: BP: 134/70 Pulse: 99 Resp: 18 Temp: 02 Sat: 100 ECG Mon: 4. Pain Intensity: 10 5. Fall Risk: Dizziness: N Needs help standing or walking: N Fallen in the last 3 months: N Fall risk comments: 6. Patient on Blood Thinner: None 7. History of Hypertension: Y 8. Opioid Therapy greater than 6 weeks: N Opiate Contract Signed: 9. Risk Assessment Tool Provided: low-0 10. Functional Assessment Tool: 11. Recreational Drug Use: Never Drug Type: Tobacco Use: Never Smoker Tobacco Type: Amount or Packs/day: How Many Years: Alcohol Use: No Frequency: Quant:
== END | disposition home or self-care (01) ==
LOC: PAIN 01-26 09:16
PROVIDERS: ATTEND Anesthesiology Pain Medicine
DX: M54.16 Radiculopathy, lumbar region (principal); G89.29 Other chronic pain; Z98.890 Other specified postprocedural states; Z79.899 Other long term (current) drug therapy; Z79.891 Long term (current) use of opiate analgesic

== ENCOUNTER → 2020-05-31 | Outpatient (CLI) | payer OTHER ==
[~2020-05-31] VITALS: Ht 154.9 cm; Wt 79.3 kg
[2020-05-31 08:36] VITALS: BP 166/89
--- NOTE | 2020-05-31 08:47 | NUR ---
Pain Clinic Assessment: 1. History of Osteoarthritis: NONE KNOWN History of Rheumatoid Arthritis: THINKS MAYBE IN HANDS 2. Height: 5 ft. 1 in. 154.9 cm. Weight: 174.8 lb. oz. 79.289 kg. Patient's BMI: 33.0 3. Vital Signs: BP: 166/89 Pulse: 100 Resp: 18 Temp: 02 Sat: 100 ECG Mon: 4. Pain Intensity: 10 5. Fall Risk: Dizziness: N Needs help standing or walking: N Fallen in the last 3 months: N Fall risk comments: 6. Patient on Blood Thinner: None 7. History of Hypertension: Y 8. Opioid Therapy greater than 6 weeks: Y Opiate Contract Signed: 9. Risk Assessment Tool Provided: low-0 10. Functional Assessment Tool: 11. Recreational Drug Use: Never Drug Type: Tobacco Use: Never Smoker Tobacco Type: Amount or Packs/day: How Many Years: Alcohol Use: No Frequency: Quant:
== END | disposition home or self-care (01) ==
LOC: PAIN 06:47
PROVIDERS: ATTEND Anesthesiology Pain Medicine
DX: M54.16 Radiculopathy, lumbar region (principal); G89.29 Other chronic pain; Z79.899 Other long term (current) drug therapy

== ENCOUNTER → 2020-07-12 | Outpatient (CLI) | payer OTHER ==
[~2020-07-12] VITALS: Ht 157.5 cm; Wt 79.8 kg
[2020-07-12 14:25] VITALS: BP 143/68
--- NOTE | 2020-07-12 14:30 | NUR ---
Pain Clinic Assessment: 1. History of Osteoarthritis: NONE KNOWN History of Rheumatoid Arthritis: THINKS MAYBE IN HANDS 2. Height: 5 ft. 2 in. 157.5 cm. Weight: 176.0 lb. oz. 79.833 kg. Patient's BMI: 32.2 3. Vital Signs: BP: 143/68 Pulse: 83 Resp: 19 Temp: 02 Sat: 98 ECG Mon: 4. Pain Intensity: 9 5. Fall Risk: Dizziness: Y Needs help standing or walking: Y Fallen in the last 3 months: N Fall risk comments: 6. Patient on Blood Thinner: None 7. History of Hypertension: Y 8. Opioid Therapy greater than 6 weeks: Y Opiate Contract Signed: 9. Risk Assessment Tool Provided: low-0 10. Functional Assessment Tool: 44/ 11. Recreational Drug Use: Never Drug Type: Tobacco Use: Never Smoker Tobacco Type: Amount or Packs/day: How Many Years: Alcohol Use: No Frequency: Quant:
--- NOTE | 2020-07-25 09:20 | HPC ---
[facility] [address] [place] [address] PAIN MANAGEMENT CONSULTATION Name: JOSE LUIS BONILLA Room #: REG SINA Juan#: [id number] Admission: 07/12/20 Attend Phys: Daksha Stoner MD Discharge: Date of : 65 Report #: [id number] CC: Itz Stoner DATE OF SERVICE: 07/12/2020 CHIEF COMPLAINT: Back pain that is going down into both legs and also some pain in the neck. HISTORY: The patient is a 55-year-old female, who has been followed in the Pain Clinic. She has a history of spinal stenosis. She does experience pain, which radiates down into both legs. She has returned today because of the worsening of pain. States that it starts with a poke sensation and then she experiences shooting pain throughout her entire leg. She has a pinpricking sensation in feet and toes that comes and goes. Pain is worse on the left side. She has been bedridden because of discomfort. She has pain so intense that it causes her to cry. She has returned today for an epidural injection. ALLERGIES: No known drug allergies. CURRENT MEDICATIONS: Jardiance 10 mg, tramadol 50 mg q. 4-6 hours, hydrocodone 5/325 one p.o. q. 4-6 hours p.r.n., Lyrica 75 mg b.i.d., amitriptyline 10 mg, meloxicam 15 mg, Trulicity 1.5 mg, insulin detemir subcutaneous as directed, Diovan 80 mg, fenofibrate 200 mg, metformin 1000 mg, Cymbalta 60 mg. PAIN CLINIC ASSESSMENT AND PQRS: 1. The patient is not being treated for rheumatoid arthritis. She does have some osteoarthritic changes in her back and in her spine. She has spinal stenosis. 2. Height 5 feet 1 inch, weight 176 pounds, BMI is 32.2. 3. Vital signs: Blood pressure 143/68, pulse 83, respiratory rate 18, room air saturation 98%. 4. Pain intensity: 9/10. 5. Fall history: The patient has not fallen since we saw her last. 6. Blood thinner: The patient is not on a blood thinning medication. 7. Hypertension: The patient is being treated for hypertension. 8. Opioids greater than 6 weeks: The patient receives medications from the Pain Clinic. 9. Risk assessment tool: Low for opioid use. 10. Functional assessment tool: 44/70. 11. Recreational drug use: The patient denies. 12. Tobacco: The patient has never smoked. 13. Alcohol: The patient denies use of alcoholic beverages. PHYSICAL EXAMINATION: GENERAL: The patient is a well-developed, well-nourished, female. She is accompanied by her son, he acts as supervisor self service store. Questions were sought and answered. The patient was wearing a mask. HEENT: Normocephalic, atraumatic. Extraocular eye muscles intact. NECK: Without adenopathy or JVD. HEART: Regular rate. LUNGS: Clear. ABDOMEN: Nontender. MUSCULOSKELETAL: The patient is without significant scoliosis, kyphosis or lordosis. The patient does have pain that radiates down the lumbar area in the L5-S1 dermatomal distribution, left side being more problematic. IMPRESSION: 1. History of spinal stenosis, L5-S1. 2. Pain and discomfort in the L3-L4 dermatomal distribution. 3. Type 2 diabetes. 4. Hypertension. 5. Polyneuropathy. 6. Stage 3 chronic renal disease. 7. Gallbladder disease. RECOMMENDATIONS: We discussed treatment options with the patient. Risks and benefits of opioid medications have been discussed. She is aware that opioid medications can become less effective as time goes on because of development of tolerance. She feels that the epidural steroid injections have been beneficial. She would like to proceed with another injection. We again described the risks and benefits of epidural steroid injections, which could include infection, worsening of pain, no improvement in pain, bleeding, and problems because of the COVID-19 pandemic. The patient feels that she would like to try physical therapy in regards to the spinal stenosis. A script has been provided for her to undergo physical therapy. PROCEDURE NOTE: The patient was taken to the procedure area. She was then assisted in getting on the examination table. Her back was sterilely prepped with betadine solution. 0.25% bupivacaine was infiltrated at the L5-S1 area. A 17-gauge Tuohy with loss of resistance technique was used to gain access to the epidural space. Fluoroscopy was used to corroborate the appropriate placement of the injection. A total of 80 mg Depo-Medrol, 40 mg triamcinolone and 2 mL of 0.25% bupivacaine was injected. There was no CSF, heme or paresthesia. The patient tolerated the procedure well. She was taken to the procedure area where she remained for an appropriate amount of time. She will follow up in the future as needed. Medications have been provided. We would like to thank you for letting us participate in her care. We hope she continues to improve. <ELECTRONICALLY SIGNED> By: Daksha Stoner MD 07/25/20 0920 [id number] Daksha Stoner MD /tamica
== END | disposition home or self-care (01) ==
LOC: PAIN 06:59
PROVIDERS: ATTEND Anesthesiology Pain Medicine
DX: M54.16 Radiculopathy, lumbar region (principal)

== ENCOUNTER → 2020-10-02 | Outpatient (CLI) | payer OTHER ==
[~2020-10-02] MED LIST changes: +LYRICA100 MG PO
== END ==
LOC: RAD 13:27
DX: Z12.31 Encounter for screening mammogram for malignant neoplasm of breast (principal)

== ENCOUNTER → 2020-11-13 | Outpatient (CLI) | payer OTHER ==
[~2020-11-13] VITALS: Ht 157.5 cm; Wt 80.7 kg
[2020-11-13 10:56] VITALS: BP 144/71
--- NOTE | 2020-11-13 11:11 | NUR ---
Pain Clinic Assessment: 1. History of Osteoarthritis: Not Applicable History of Rheumatoid Arthritis: HANDS 2. Height: 5 ft. 2 in. 157.5 cm. Weight: 178.0 lb. oz. 80.740 kg. Patient's BMI: 32.5 3. Vital Signs: BP: 144/71 Pulse: 94 Resp: 18 Temp: 02 Sat: 98 ECG Mon: 4. Pain Intensity: 3 5. Fall Risk: Dizziness: N Needs help standing or walking: N Fallen in the last 3 months: N Fall risk comments: 6. Patient on Blood Thinner: None 7. History of Hypertension: Y 8. Opioid Therapy greater than 6 weeks: Y Opiate Contract Signed: 9. Risk Assessment Tool Provided: low-0 10. Functional Assessment Tool: 11. Recreational Drug Use: Never Drug Type: Tobacco Use: Never Smoker Tobacco Type: Amount or Packs/day: How Many Years: Alcohol Use: No Frequency: Quant:
--- NOTE | 2020-11-13 16:13 | HPC ---
[facility] [address] [place] [address] PAIN MANAGEMENT CONSULTATION Name: JOSE LUIS BONILLA Ozzie Room #: REG [facility]..#: [id number] Admission: 11/13/20 Attend Phys: Cyndi Pimentel Discharge: Date of : 65 Report #: [id number] THIS REPORT FOR: cc: [facility] Physician not on staff Cyndi Pimentel ~ DATE OF SERVICE: 11/13/2020 CHIEF COMPLAINT: Low back pain, bilateral leg pain. HISTORY OF PRESENT ILLNESS: This is a 55-year-old female who returns to the pain clinic today for discussion on her medication refills. Today, she is reporting that she is going to visit her [place] in [place] and is wondering how she should obtain her opioid medications while she is gone. She reports that she will return on 12/25/2020, so will be gone a total of 5 weeks. Today, she is reporting a pain score of 3/10, mostly located in her lower back and legs. It is a constant numbness, tingly sensation. She believes that is worse with standing and any physical work or walking. The patient feels that the Lyrica has been beneficial as well as taking her as needed hydrocodone. ALLERGIES: No known drug allergies. CURRENT LIST OF MEDICATIONS: Hydrocodone 5/325 p.r.n., Lyrica 100 mg b.i.d., meloxicam 15 mg daily, metformin, Cymbalta, fenofibrate, NovoLog, Jardiance, Diovan, Levemir and Trulicity. PQRS: 1. She has osteoarthritic changes in her back and hands. Denies any rheumatoid arthritis. 2. Height is 5 feet 2 inches, weight is 178, BMI is 32. 3. Vital signs 144/71, pulse is 94, respirations 18, oxygen sat is 98%. 4. Pain score is 3/10. 5. Denies dizziness. Does not need assistance walking, has not fallen in the last 3 months. 6. The patient is not on any blood thinners, but does take medicine for hypertension. Opioid therapy is greater than 6 weeks. Therefore, an opioid signed contract is on the chart. Risk assessment is low. Functional assessment is 44/70. 7. Recreational drug use, she denies. She is not a smoker and does not drink alcohol. According to the prescription monitoring system, she has not filled her medication since September. She still has 2 prescriptions at the pharmacy that she has not filled. Her morphine mEq is 15-20 MME per day. PHYSICAL EXAMINATION: [address] [address] PAIN MANAGEMENT CONSULTATION Name: JOSE LUIS BONILLA Room #: REG [facility] Juan#: [id number] Admission: 11/13/20 Attend Phys: Cyndi Pimentel Discharge: Date of : 65 Report #: [id number] GENERAL: This is alert and orientated, Ukrainian speaking, well-developed, well-nourished female, rating her pain score today at 3/10. HEENT: Normocephalic, atraumatic. Extraocular eye muscles are intact. She is wearing a mask. NECK: Without adenopathy or JVD. MUSCULOSKELETAL: She is without significant scoliosis, kyphosis or lordosis. Her upper and lower extremity strength are symmetrical at 5/5 with good sensation. Pain radiates from her lumbar spine into her legs bilaterally with some numbness. IMPRESSION: 1. History of spinal stenosis at the L5-S1 level. 2. Lumbar radiculopathy following the L3-L4, L5-S1. 3. Polyneuropathy. 4. Type 2 diabetes. 5. Opioid medication under written opioid agreement. 6. Stage 3 chronic renal disease. PLAN: 1. We discussed treatment options with the patient today. We did discuss this with her daughter via the telephone today. The patient has not filled her October script at her [facility] for 4-week and 8-week release. We will void those prescriptions. She now has transferred her care to [facility], It was decided with much discussion with Dr. Stoner today that we will send a prescription of hydrocodone 5/325 for 150 for 1 month and then reducing her pain medications to 4 times a month starting in December, to be released on 12/26/2020 and 01/25/2021. The patient then will return to us in February. The patient and daughter understand that this medication will last her until she is back from her vacation. 2. 3-month supply of Lyrica 100 mg tablets twice a day as well as her meloxicam were sent electronically as well. We did discuss her renal issues. Per the daughter's report, currently, her labs are stable and she will continue on her meloxicam. 3. The patient is seen today in collaboration with Dr. Stoner who collaborated this care. The patient is agreeable with this plan of care and we will see her in 3 months. <ELECTRONICALLY SIGNED> By: Cyndi Pimentel 11/13/20 1613 [id number] Cyndi Pimentel /nt
== END ==
LOC: PAIN 06:53
PROVIDERS: ATTEND Clinical Nurse Specialist Adult Health
DX: M54.17 Radiculopathy, lumbosacral region (principal); M79.604 Pain in right leg; M79.605 Pain in left leg; G62.9 Polyneuropathy, unspecified; F11.20 Opioid dependence, uncomplicated; N18.30 Chronic kidney disease, stage 3 unspecified; Z87.39 Personal history of other diseases of the musculoskeletal system and connective tissue

== ENCOUNTER → 2021-04-11 | Outpatient (CLI) | payer OTHER ==
[2021-01-29 09:53] VITALS: BP 134/71
[~2021-04-11] VITALS: Ht 157.5 cm; Wt 77.9 kg
[~2021-04-11] MED LIST changes: +MEDROLDOSEPACK PO
[2021-04-11 11:03] VITALS: BP 142/63
--- NOTE | 2021-04-11 11:40 | NUR ---
Pain Clinic Assessment: 1. History of Osteoarthritis: Not Applicable History of Rheumatoid Arthritis: HANDS 2. Height: 5 ft. 2 in. 157.5 cm. Weight: 171.8 lb. oz. 77.928 kg. Patient's BMI: 31.4 3. Vital Signs: BP: 142/63 Pulse: 88 Resp: 16 Temp: 02 Sat: 98 ECG Mon: 4. Pain Intensity: 6 5. Fall Risk: Dizziness: N Needs help standing or walking: N Fallen in the last 3 months: N Fall risk comments: 6. Patient on Blood Thinner: None 7. History of Hypertension: Y 8. Opioid Therapy greater than 6 weeks: Y Opiate Contract Signed: 9. Risk Assessment Tool Provided: low-0 10. Functional Assessment Tool: 44/ 11. Recreational Drug Use: Never Drug Type: Tobacco Use: Never Smoker Tobacco Type: Amount or Packs/day: How Many Years: Alcohol Use: No Frequency: Quant:
== END ==
LOC: PAIN 01-29 09:27
PROVIDERS: ATTEND Anesthesiology Pain Medicine
DX: M48.07 Spinal stenosis, lumbosacral region (principal); E11.22 Type 2 diabetes mellitus with diabetic chronic kidney disease; I12.9 Hypertensive chronic kidney disease with stage 1 through stage 4 chronic kidney disease, or unspecified chronic kidney disease; N18.30 Chronic kidney disease, stage 3 unspecified; K82.9 Disease of gallbladder, unspecified; Z79.899 Other long term (current) drug therapy

== ENCOUNTER → 2021-07-02 | Outpatient (CLI) | payer OTHER ==
[~2021-07-02] VITALS: Ht 157.5 cm; Wt 75.8 kg
[2021-07-02 09:37] VITALS: BP 153/75
--- NOTE | 2021-07-02 09:59 | NUR ---
Pain Clinic Assessment: 1. History of Osteoarthritis: Not Applicable History of Rheumatoid Arthritis: HANDS 2. Height: 5 ft. 2 in. 157.5 cm. Weight: 167.2 lb. oz. 75.841 kg. Patient's BMI: 30.6 3. Vital Signs: BP: 153/75 Pulse: 89 Resp: 16 Temp: 02 Sat: 99 ECG Mon: 4. Pain Intensity: 4 SIT/ 8 WALKING 5. Fall Risk: Dizziness: Y Needs help standing or walking: N Fallen in the last 3 months: N Fall risk comments: 6. Patient on Blood Thinner: None 7. History of Hypertension: Y 8. Opioid Therapy greater than 6 weeks: Y Opiate Contract Signed: 04/11/21 9. Risk Assessment Tool Provided: low-0 10. Functional Assessment Tool: 11. Recreational Drug Use: Never Drug Type: Tobacco Use: Never Smoker Tobacco Type: Amount or Packs/day: How Many Years: Alcohol Use: No Frequency: Quant:
== END | disposition home or self-care (01) ==
LOC: PAIN 06:58
PROVIDERS: ATTEND Anesthesiology Pain Medicine
DX: M54.16 Radiculopathy, lumbar region (principal); G89.29 Other chronic pain; I12.9 Hypertensive chronic kidney disease with stage 1 through stage 4 chronic kidney disease, or unspecified chronic kidney disease; E11.22 Type 2 diabetes mellitus with diabetic chronic kidney disease; N18.30 Chronic kidney disease, stage 3 unspecified; Z98.890 Other specified postprocedural states; Z79.899 Other long term (current) drug therapy; Z79.4 Long term (current) use of insulin

== ENCOUNTER → 2021-09-10 | Outpatient (CLI) | payer OTHER ==
[~2021-09-10] VITALS: Ht 157.5 cm; Wt 73.1 kg
[~2021-09-10] MED LIST changes: +HYDROCODON-ACE1 EAC8 PO; +HYDROCODONE-AP1 EA11 PO; +MOBIC7.5 MG PO
[2021-09-10 09:41] VITALS: BP 140/69
--- NOTE | 2021-09-10 09:47 | NUR ---
Pain Clinic Assessment: 1. History of Osteoarthritis: Not Applicable History of Rheumatoid Arthritis: HANDS 2. Height: 5 ft. 2 in. 157.5 cm. Weight: 161.2 lb. oz. 73.120 kg. Patient's BMI: 29.5 3. Vital Signs: BP: 140/69 Pulse: 78 Resp: 16 Temp: 02 Sat: 100 ECG Mon: 4. Pain Intensity: 7-8 5. Fall Risk: Dizziness: N Needs help standing or walking: N Fallen in the last 3 months: N Fall risk comments: 6. Patient on Blood Thinner: None 7. History of Hypertension: Y 8. Opioid Therapy greater than 6 weeks: Y Opiate Contract Signed: 04/11/21 9. Risk Assessment Tool Provided: low-0 10. Functional Assessment Tool: 11. Recreational Drug Use: Never Drug Type: Tobacco Use: Never Smoker Tobacco Type: Amount or Packs/day: How Many Years: Alcohol Use: No Frequency: Quant:
== END | disposition home or self-care (01) ==
LOC: PAIN 09:01
PROVIDERS: ATTEND Anesthesiology Pain Medicine
DX: M54.59 Other low back pain (principal); M48.061 Spinal stenosis, lumbar region without neurogenic claudication; G89.29 Other chronic pain; I10 Essential (primary) hypertension; E11.9 Type 2 diabetes mellitus without complications; Z98.890 Other specified postprocedural states; Z79.899 Other long term (current) drug therapy; Z79.4 Long term (current) use of insulin; Z90.49 Acquired absence of other specified parts of digestive tract

== ENCOUNTER → 2021-10-03 | Outpatient (CLI) | payer OTHER | LOC: BC 10:54 | DX: Z12.31 Encounter for screening mammogram for malignant neoplasm of breast (principal); N64.89 Other specified disorders of breast ==

== ENCOUNTER → 2021-10-24 | Outpatient (CLI) | payer OTHER ==
[~2021-10-24] VITALS: Ht 157.5 cm; Wt 73.7 kg
[2021-10-24 11:01] VITALS: BP 120/70
--- NOTE | 2021-10-24 11:08 | NUR ---
Pain Clinic Assessment: 1. History of Osteoarthritis: Not Applicable History of Rheumatoid Arthritis: HANDS 2. Height: 5 ft. 2 in. 157.5 cm. Weight: 162.4 lb. oz. 73.664 kg. Patient's BMI: 29.7 3. Vital Signs: BP: 120/70 Pulse: 88 Resp: 16 Temp: 02 Sat: 100 ECG Mon: 4. Pain Intensity: 8-9 5. Fall Risk: Dizziness: N Needs help standing or walking: N Fallen in the last 3 months: N Fall risk comments: 6. Patient on Blood Thinner: None 7. History of Hypertension: Y 8. Opioid Therapy greater than 6 weeks: Y Opiate Contract Signed: 04/11/21 9. Risk Assessment Tool Provided: low-0 10. Functional Assessment Tool: 11. Recreational Drug Use: Never Drug Type: Tobacco Use: Never Smoker Tobacco Type: Amount or Packs/day: How Many Years: Alcohol Use: No Frequency: Quant:
== END | disposition home or self-care (01) ==
LOC: PAIN 10:45
PROVIDERS: ATTEND Anesthesiology Pain Medicine
DX: M54.16 Radiculopathy, lumbar region (principal); M48.061 Spinal stenosis, lumbar region without neurogenic claudication; G89.29 Other chronic pain; I10 Essential (primary) hypertension; E11.9 Type 2 diabetes mellitus without complications; Z98.890 Other specified postprocedural states; Z79.899 Other long term (current) drug therapy; Z90.49 Acquired absence of other specified parts of digestive tract; Z79.4 Long term (current) use of insulin